=== PATIENT | female | born 1980 | race Caucasian/White ===

== ENCOUNTER → 2019-11-02 13:47 | Outpatient (CLI) | payer OTHER, SELFPAY ==
--- NOTE | 2019-11-02 14:06 | XR_ITS ---
PROCEDURE: XR CHEST 2V CLINICAL HISTORY: ACUTE BRONCHOPNEUMONIA Cough for 7 days COMPARISON: No exams were available for comparison FINDINGS: The cardiomediastinal silhouette and pulmonary vascularity are within normal limits. The lungs are clear without infiltrates, suspicious nodules, or pleural effusions. Calcified granulomas seen in the right mid lung field. No acute bony abnormalities. IMPRESSION: No acute findings. Dictated by: Kerwin Roland 11/02/2019 15:06 Electronically signed by Kerwin Roland in [place] 11/02/2019 15:06
== END ==
PROVIDERS: PCP Internal Medicine Adolescent Medicine; Visit Provider Internal Medicine Adolescent Medicine
DX: J18.0 Bronchopneumonia, unspecified organism (principal)
CPT/HCPCS: 71046

== ENCOUNTER → 2019-11-05 14:28 | Outpatient (CLI) | payer OTHER, SELFPAY ==
--- NOTE | 2019-11-05 14:44 | ECG_ITS ---
APPROVED REPORT Exam: Resting ECG HR:78 bpm ECG Measurements Heart Rate 78 AXES KS 130 P 83 QRSd 90 QRS 94 QT 386 T 50 QTc 440 <Conclusion> Normal sinus rhythm Rightward axis Borderline ECG Electronically signed by : Reg Richardson, 11/05/2019 17:01:35
[2019-11-05 15:02] LABS: Basophils # 0.1 K/mm3 (0-0.2); Basophils % 1.4 % (0.1-2.0); Eosinophils # 0.2 K/mm3 (0.0-0.4); Hematocrit 40.7 % (37.0-47.0); Hemoglobin 13.5 g/dL (12.2-16.2); Lymphocytes # 1.1 K/mm3 (0.7-4.5); Mean Corpuscular HGB Conc 33.1 g/dL (31.8-35.4); Mean Corpuscular Hemoglobin 30.3 pg (27.0-31.2); Mean Corpuscular Volume 91.8 fl (81-99); Mean Platelet Volume 7.9 fl (7.4-10.4); Monocytes # 0.2 K/mm3 (0.1-1.0); Monocytes % 5.1 % (1.7-9.3); Neutrophils # 3.1 K/mm3 (1.8-7.8); Neutrophils % 65.5 % (37.0-80.0); Platelet Count 141 K/mm3 (142-424); Red Blood Count 4.44 M/mm3 (4.20-5.40); Red Cell Distribution Width 12.6 % (11.5-17.5); White Blood Count 4.7 K/mm3 (4.8-10.8)
[2019-11-05 16:30] LABS: Chloride 105 mmol/L (98-107); Potassium 4.3 mmoL/L (3.5-5.1); Sodium 138 mmol/L (136-145)
[2019-11-05 16:32] LABS: Blood Urea Nitrogen 13 mg/dl (7-17); Estimated Glomerular Filt Rate 92 ml/min (>60); GFR (African American) 112 ML/MIN (>60)
[2019-11-05 16:33] LABS: Alanine Aminotransferase 35 U/L (12-78); Albumin Level 4.3 g/dl (3.5-5.0); Albumin/Globulin Ratio 1.8 (1.1-1.8); Alkaline Phosphatase 44 U/L (38-126); Anion Gap 5.3 mEq/L (5-15); Aspartate Amino Transferase 39 U/L (14-36); Bilirubin,Total 0.6 mg/dl (0.2-1.3); Calcium 9.5 mg/dl (8.4-10.2); Carbon Dioxide 32 mmol/L (22.0-30.0); Globulin 2.4 g/dL (1.3-3.2); Glucose 84 mg/dl (74-100); Total Protein,Serum 6.7 g/dl (6.3-8.2)
== END ==
PROVIDERS: Visit Provider Internal Medicine Adolescent Medicine
DX: R50.9 Fever, unspecified (principal); R05 Cough; Z79.899 Other long term (current) drug therapy
CPT/HCPCS: 36415; 80053; 85025; 93005

== ENCOUNTER → 2021-05-11 15:56 | Outpatient (CLI) | payer OTHER, SELFPAY ==
--- NOTE | 2021-05-11 15:59 | MM_ITS ---
PROCEDURE: MM DIG SCREENING MAMM BI W/CAD Digital Breast Tomosynthesis Included CLINICAL INDICATION: SCREENING COMPARISON: MG NB MAMM DIAG BILAT DIG PNL from 12/10/2014 MG BC-MAMM CLIP PLACEMENT OR VERIFI from 12/29/2014 MG BS-STEREO BX W/WO DEV 1ST from 12/29/2014 MG BS-STEREO SPECIMEN (RAD) EXAM from 12/29/2014 TECHNIQUE: Standard CC and MLO images and 3D Tomosynthesis was obtained. R2 CAD reviewed. FINDINGS: The breasts are heterogeneously dense which may obscure small masses. Right breast: Biopsy clip is present in the upper outer aspect of the right breast. No malignant appearing mass or malignant-appearing microcalcification. There is a 2 mm slightly lobulated nodule in the immediate retroareolar region only seen on the MLO view best seen on the tomosynthesis images. This may only be related to a small area of fibroglandular tissue. Spot compression views and ultrasound suggested for further evaluation. There are few benign appearing calcifications present. Left breast: There is a 2.6 x 2.2 by 2.7 cm well-circumscribed mass in the 9 o'clock region of the left breast central 1/3. There is a biopsy clip along the peripheral aspect of this mass. This does contain some calcifications most of which are coarse appearing. There is a least 1 area of linear calcification noted in the anterior aspect of this nodule and a few small punctate microcalcifications are also present.. This lesion has increased in size compared to the previous exam previously measuring 1.6 x 1.6 x 2.1 cm. IMPRESSION: Enlarging mass of the left breast. There is a surgical clip along the periphery of this lesion assuming that this has been previously biopsied. It may represent a fibroadenoma however, the pathology results are not available for review. Nonetheless this is increased in size and now contains some slightly suspicious calcifications. Therefore, suggest excisional biopsy for an enlarging assumed fibroadenoma. Please correlate with previous pathology. Small nodular opacity in the right retroareolar region for which spot compression view and ultrasound is suggested. BI-RAD Category: 4 Suspicious Abnormality-Biopsy Considered FOLLOW-UP: BIO Biopsy Recommended (A letter has been sent to the patient regarding results of the study.) Dictated by: Alex Metzger MD 05/17/2021 15:27 Alex Metzger MD in [place] 05/17/2021 15:27
== END ==
PROVIDERS: PCP Internal Medicine Adolescent Medicine; Visit Provider Internal Medicine Adolescent Medicine
DX: Z12.31 Encounter for screening mammogram for malignant neoplasm of breast (principal)
CPT/HCPCS: 77063; 77067

== ENCOUNTER → 2021-05-24 13:06 | Outpatient (CLI) | payer OTHER, SELFPAY ==
--- NOTE | 2021-05-24 13:06 | MM_ITS ---
PROCEDURE: MM DIG MAMM DX UNILAT RT CAD Digital Breast Tomosynthesis Included Right breast ultrasound complete Left breast ultrasound complete CLINICAL INDICATION: mass COMPARISON: US NU US BREAST UNILATERAL COMPLETE from 12/10/2014 MG NB MAMM DIAG BILAT DIG PNL from 12/10/2014 MG BS-STEREO BX W/WO DEV 1ST from 12/29/2014 MG BS-STEREO SPECIMEN (RAD) EXAM from 12/29/2014 MG MM DIG SCREENING MAMM BI W/CAD from 05/11/2021 US US BREAST LT COMPLETE from 05/24/2021 US US BREAST RT COMPLETE from 05/24/2021 TECHNIQUE: Problem solving views right breast and bilateral breast ultrasound FINDINGS: Right breast: The small nodular density in the retroareolar region is once again noted. This is well-circumscribed only well seen on the MLO view measuring approximately 2-3 mm. Probably benign. Right breast ultrasound: At 12 o'clock near the nipple there is a complicated cyst measuring 9 x 4 mm with multiple small septations. At 3 o'clock near the nipple there is a 4 x 5 mm cyst which may account for the mammographic abnormality. No suspicious lesions evident. Left breast ultrasound: At 2 o'clock near the nipple there is a complicated cyst measuring 6 mm. At 3 o'clock near the nipple there is a 2.4 x 1.6 x 2.6 cm hypoechoic nodule. There is posterior acoustical shadowing. The nodule is well-circumscribed. A clip is present along the posterior aspect of this nodule as seen on the recent mammogram. Previous ultrasound show the nodule to measure 2.3 by 2.3 x 1.5 cm. Mammographically, the nodule has enlarged now with some calcifications. Excisional suggested IMPRESSION: Probably benign findings right breast. Suggest 6 month follow-up. Left breast nodule at 3 o'clock has enlarged slightly compared to the previous exam. There are also some calcifications now present within the nodule. Excision of the nodule is suggested. BI-RAD Category: 4 Suspicious Abnormality-Biopsy Considered FOLLOW-UP: Six-month follow-up right breast. Recommend surgical excision of the left breast nodule. (A letter has been sent to the patient regarding results of the study.) Dictated by: Alex Metzger MD 05/31/2021 09:38 Alex Metzger MD in [place] 05/31/2021 09:38
== END ==
PROVIDERS: PCP Internal Medicine Adolescent Medicine; Visit Provider Surgery
DX: R92.8 Other abnormal and inconclusive findings on diagnostic imaging of breast (principal)
CPT/HCPCS: 76641; 77061; 77065; G0279

== ENCOUNTER → 2021-06-01 11:53 | Outpatient (CLI) | payer OTHER, SELFPAY ==
[2021-06-01 12:43] LABS: Basophils # 0.1 K/mm3 (0-0.2); Basophils % 1.5 % (0.1-2.0); Eosinophils # 0.1 K/mm3 (0.0-0.4); Eosinophils % 2.6 % (0.1-12.0); Hematocrit 43.3 % (37.0-47.0); Hemoglobin 14.2 g/dL (12.2-16.2); Lymphocytes % 27.4 % (10-50); Mean Corpuscular HGB Conc 32.9 g/dL (31.8-35.4); Mean Corpuscular Hemoglobin 30.6 pg (27.0-31.2); Mean Corpuscular Volume 93.2 fl (81-99); Mean Platelet Volume 7.3 fl (7.4-10.4); Monocytes # 0.2 K/mm3 (0.1-1.0); Monocytes % 5.8 % (1.7-9.3); Neutrophils # 2.3 K/mm3 (1.8-7.8); Neutrophils % 62.7 % (37.0-80.0); Platelet Count 173 K/mm3 (142-424); Red Blood Count 4.65 M/mm3 (4.20-5.40); Red Cell Distribution Width 12.5 % (11.5-17.5); White Blood Count 3.6 K/mm3 (4.8-10.8)
[2021-06-01 13:19] LABS: Chloride 104 mmol/L (98-107); Potassium 4.7 mmoL/L (3.5-5.1); Sodium 140 mmol/L (136-145)
[2021-06-01 13:21] LABS: Blood Urea Nitrogen 15 mg/dl (7-17); Estimated Glomerular Filt Rate 110 ml/min (>60); GFR (African American) 133 ML/MIN (>60)
[2021-06-01 13:22] LABS: Anion Gap 12.7 mEq/L (5-15); Calcium 8.9 mg/dl (8.4-10.2); Carbon Dioxide 28 mmol/L (22.0-30.0); Glucose 88 mg/dl (74-100)
== END ==
PROVIDERS: Visit Provider Surgery
DX: Z01.812 Encounter for preprocedural laboratory examination (principal); Z11.52 Encounter for screening for COVID-19; N63.20 Unspecified lump in the left breast, unspecified quadrant
CPT/HCPCS: 36415; 80048; 85025; C9803; U0003; U0005

== ENCOUNTER 2021-06-03 09:19 | Day surgery (SDC) | payer OTHER, SELFPAY ==
[2021-05-31 10:26] VITALS: BMI 22.8
[2021-06-03] VITALS (11 sets, daily range): BP systolic 102–128; BP diastolic 64–69; PULSE 56–72; RESP 12–18; TEMP 36.4–43; O2SAT 96–100
--- NOTE | 2021-06-03 | MM_ITS ---
PROCEDURE: MM DIG MAMM DX UNILAT LT CLINICAL INDICATION: COMPARISON: No exams were available for comparison TECHNIQUE: CC and mL views are obtained following ultrasound-guided acquire placement FINDINGS: The hookwire is along the mid to posterior aspect of the 3 o'clock nodule of the left breast centrally on the CC view in good position. IMPRESSION: Adequate hookwire localization of the left breast nodule Dictated by: Alex Metzger MD 06/09/2021 18:21 Alex Metzger MD in [place] 06/09/2021 18:21
[2021-06-03 06:47] LABS: HCG Qualitative, Serum Negative (Negative)
--- NOTE | 2021-06-03 10:01 | HMH.ANESCL ---
[facility] Anesthesia Checklist - Patient Identification Patient Identification: Arm Band - Structural Data Admitted From: Home Planned Operative Procedure/s: Needle loc breast biopsy Consent for Planned Operative Procedure(s) Verified: Yes - NPO Status Verified Time NPO: 00:00 - Additional verifications Anesthesia Reactions: Yes (nausea) Hx Blood Transfusions: No Blood Transfusion Reaction: No - Airway Assessment C-Spine Mobility Assessed: Yes TMJ Mobility Assessed: Yes Dentition: Good Dentition - Neurological Assessment Level of Consciousness: Awake Hx Seizures: No Numbness or tingling in extremities: No - Anesthesia Plan Anesthesia Risk discussed: Yes Anesthesia Plan: Verified ASA Class: I Anesthesia Type: General [facility] History I have reviewed the patient's past medical history: Yes Medical History: Denies:: Cancer, Diabetes Mellitus Type 1, Diabetes Mellitus Type 2, Internal Pacemaker, MRSA, Seizures *Have you ever received a pneumonia vaccine?: No *Have you received a flu vaccine this season?: Yes Other Medical History: Reports: Sinus Problems (Seasonal allergies). Denies: Blood Transfusion Reaction Anesthesia experience/problems:: PONV Other Surgeries: Yes: Other. 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
--- NOTE | 2021-06-03 10:12 | US_ITS ---
PROCEDURE: US BREAST NEEDLE LOC LT CLINICAL INDICATION: lump Left breast mass 3 o'clock COMPARISON: US US BREAST LT COMPLETE from 05/24/2021 FINDINGS: Following time-out procedure and obtaining informed consent under aseptic conditions and local anesthesia with 1 percent buffered lidocaine Kopan's needle was inserted into the center of the right breast nodule and hookwire was and employed. The patient tolerated the procedure well without evidence of immediate complication. IMPRESSION: Uneventful ultrasound-guided needle localization of the left breast Dictated by: Alex Metzger MD 06/09/2021 18:20 Alex Metzger MD in [place] 06/09/2021 18:20
--- NOTE | 2021-06-03 13:32 | MM_ITS ---
PROCEDURE: MM SURGICAL SPECIMEN CLINICAL INDICATION: SURGICAL SPECIMEN COMPARISON: No exams were available for comparison TECHNIQUE: Single image submitted of breast tissue specimen FINDINGS: Single image submitted in consent demonstrates the nodule of interest with a wire in place within the nodule. IMPRESSION: Tissue specimen shows the nodule of interest. Dictated by: Alex Metzger MD 06/09/2021 18:23 Alex Metzger MD in [place] 06/09/2021 18:23
--- NOTE | 2021-06-03 14:06 | P.PN_ITS ---
[facility] Anesthesia Record Part I Intake, IV Amount: 1,500 Estimated blood loss (mL): 25 Urine output (mL): 0 Blood Pressure: 102/65 SaO2: 96 Pulse Rate: 56 Respiratory Rate: 12 Temperature: 97.8 F Patient is:: Awake, Stable Stable to PACU at:: 14:00
--- NOTE | 2021-06-03 14:08 | P.OP_ITS ---
Date of procedure: 06/03/21 Pre-op Diagnosis:: Left breast mass Post-op Diagnosis:: Same Procedure performed:: Needle-localized excisional biopsy of left breast mass Surgeon:: José Miguel Guerrero MD Stone Setter Apprentice(s):: Tracy SUPERVISOR MET[employer]URNITURE FABRICATION:: Irvin Mead Anesthesia: LMA Estimated blood loss (mL): 15 Operative findings:: Excision confirmed radiographically Operative note:: After informed consent was obtained the patient was initially transferred to the radiology department for placement of her localization needle. Please see separate report for detail. She was then transferred to the operative suite and placed in the supine position. General anesthesia with laryngeal mask airway was achieved. Her left breast was prepped and draped in a sterile fashion. After infiltration with local anesthetic a curvilinear incision along the areolar margin was made adjacent to the needle exit site. The deep subcutaneous tissue was sharply dissected. The needle was brought into the incisional wound as the tissue was carefully elevated. A combination of electrocautery and dissection with curved Mcfarlane's was utilized to dissect the lesion free from surrounding tissue. The lesion was excised in toto and passed off for pathologic evaluation after being marked for margin with suture. Nondyed suture was utilized to vega the superior and lateral margins (short superior/long lateral). Dyed suture was then utilized to vega the superficial and deep margins (short superficial/long deep). The lesion was transferred to the radiology department where confirmation was made radiographically of appropriate excision. Electrocautery was utilized to achieve hemostasis. The wound margins were marked with metallic clips. Skin was then closed with a combination of 2-0 Vicryl and 4-0 Monocryl. Dressings were applied and the patient was transferred recovery in stable condition after removal of her laryngeal mask airway. Condition: stable Disposition: PACU Specimens:: Left breast mass Complications:: No immediate
--- NOTE | 2021-06-03 15:21 | P.PN_ITS ---
[facility] Anesthesia Record Part II Discharge Time: 14:30 Destination: Surgical Day Care (OP Surgery) PACU nurse assessment reviewed?: Yes Patient Condition:: Good Anesthesia Complications:: None Swallowing reflex intact?: Yes Cyanosis?: No Blood Pressure: 102/64 Pulse Rate: 60 Temperature: 97.5 F Mental Status: Alert & Oriented Pain level:: 0 Nausea and/or vomitting:: None Intake, IV Amount: 0
== END 2021-06-03 15:01 ==
PROVIDERS: PCP Internal Medicine Adolescent Medicine; Visit Provider Surgery
PROC: (CPT 19125; principal; 2021-06-03 11:45)
DX: N63.20 Unspecified lump in the left breast, unspecified quadrant (principal)
CPT/HCPCS: 19125; 19285; 76098; 77061; 77065; 84703; 96374; G0279; J2405

== ENCOUNTER → 2021-12-15 13:04 | Outpatient (CLI) | payer OTHER, SELFPAY ==
--- NOTE | 2021-12-15 13:04 | MM_ITS ---
PROCEDURE INFORMATION: Exam: US Left Breast, Complete US Right Breast, Complete MG Bilateral Diagnostic Breast Tomosynthesis Exam date and time: 12/15/2021 1:01 PM Age: 41 years old Clinical indication: Short-term radiographic followup; Bilateral breasts; Abnormal findings; Mass, lump, or swelling; Left; Prior surgery; Surgery date: 1-6 months; Surgery type: PT had fibroadenoma removed around 300 area; Patient HX: ; Fu; Additional info: 6 month fu TECHNIQUE: Imaging protocol: Complete ultrasound of all four quadrants of the Left breast and the retroareolar regions, including ultrasound of the axilla when performed. Complete ultrasound of all four quadrants of the Right breast and the retroareolar regions, including ultrasound of the axilla when performed. Bilateral Diagnostic tomosynthesis and 2D mammography including computer-aided detection (CAD) when performed. Unilateral or bilateral exam. COMPARISON: 1. MG MM DIG MAMM DX UNILAT LT CAD 06/03/2021 10:58 AM 2. MG MM DIG MAMM DX UNILAT RT CAD 05/24/2021 1:23 PM 3. MG MM DIG SCREENING MAMM BI W/CAD 05/11/2021 3:59 PM 4. SD US BREAST NEEDLE LOC LT 06/03/2021 10:20 AM FINDINGS: MAMMOGRAPHY: The breast is heterogeneously dense, which may obscure small masses. There are postoperative findings within the left breast. A previously present dominant retroareolar mass is no longer present, with postoperative distortion in this location No new mass, architectural distortion, or suspicious calcifications have developed to suggest malignancy. No axillary adenopathy. ULTRASOUND: Left breast: There is the expected distortion and small seroma along the 3 o'clock region of recently resected fibroadenoma. A couple of cysts measure approximately 3 mm. No suspicious solid or cystic mass is present. Right: Along the 12 o'clock periareolar breast 1 cm from the nipple, there is a hypoechoic septated complex near anechoic structure which measures 10 x 6 by 8 mm, previously 9 by 4 x 9 mm on 05/24/2021. This has features of a complicated cyst or a group of microcysts. Any difference in measurement is thought to reflect measuring technique There is a 6 mm simple cyst in the upper outer right breast 3 cm from the nipple No suspicious solid or cystic mass. No architectural distortion or shadowing is present. IMPRESSION: Six-month follow-up right breast targeted ultrasound is recommended to assess stability of a complex cystic structure in the right 12 o'clock periareolar breast. This appears to reflect a group of microcysts or possibly a septated cyst Routine annual screening mammography is recommended ASSESSMENT: BI-RADS category 3: Probably benign
== END ==
PROVIDERS: PCP Internal Medicine Adolescent Medicine; Visit Provider Surgery
DX: R92.8 Other abnormal and inconclusive findings on diagnostic imaging of breast (principal); D24.2 Benign neoplasm of left breast
CPT/HCPCS: 76641; 77062; 77066; G0279

== ENCOUNTER → 2022-06-08 12:57 | Outpatient (CLI) | payer OTHER, SELFPAY ==
--- NOTE | 2022-06-08 12:58 | US_ITS ---
PROCEDURE INFORMATION: Exam: US Right Breast, Complete Exam date and time: 06/08/2022 1:06 PM Age: 41 years old Clinical indication: Short-term radiographic follow-up for probable cystic change TECHNIQUE: Imaging protocol: Complete ultrasound of all four quadrants of the Right breast and the retroareolar regions, including ultrasound of the axilla when performed. COMPARISON: US BREAST RT COMPLETE 12/15/2021 1:43 PM FINDINGS: Breast: Sonographic images of the right breast including the retroareolar region, all 4 quadrants and the axilla do not demonstrate any solid masses. Minimal cystic change including a cluster of cysts in the 12 o'clock axis. No architectural distortion or acoustical shadowing. No skin thickening or axillary adenopathy. IMPRESSION: No sonographic evidence of malignancy. Benign cystic change in the right 12 o'clock axis. Annual mammographic screening is recommended unless otherwise clinically indicated. ASSESSMENT: BI-RADS Category 2: Benign
== END ==
PROVIDERS: PCP Internal Medicine Adolescent Medicine; Visit Provider Surgery
DX: N60.01 Solitary cyst of right breast (principal)
CPT/HCPCS: 76641

== ENCOUNTER → 2023-02-19 15:14 | Outpatient (CLI) | payer OTHER, SELFPAY ==
--- NOTE | 2023-02-19 15:32 | MM_ITS ---
PROCEDURE INFORMATION: Exam: US Right Breast, Complete US Left Breast, Complete MG Bilateral Screening 3D Mammography Exam date and time: 02/19/2023 3:40 PM Age: 42 years old Clinical indication: Screening. No family history of breast cancer. History of left excisional biopsy for fibroadenoma. TECHNIQUE: Imaging protocol: Complete ultrasound of all four quadrants of the right breast and the retroareolar regions, including ultrasound of the axilla when performed. Complete ultrasound of all four quadrants of the left breast and the retroareolar regions, including ultrasound of the axilla when performed. Bilateral Screening tomosynthesis and 2D mammography including computer-aided detection (CAD) when performed. COMPARISON: MG MM DIG MAMM BI DX W/CAD 12/15/2021 1:01 PM US BREAST LT COMPLETE 12/15/2021 2:00 PM US BREAST RT COMPLETE 12/15/2021 1:43 PM US BREAST RT COMPLETE 06/08/2022 1:06 PM US BREAST RT COMPLETE 05/24/2021 1:13 PM FINDINGS: MAMMOGRAPHY: Breast composition: The breasts are heterogeneously dense, which may obscure small masses. Mass: None. Architectural distortion: Stable postoperative architectural distortion and surgical clips in the left breast. Calcifications: No suspicious calcifications. Asymmetric density: None. Skin thickening: None. Axillary adenopathy: None. Other: Right biopsy clip. ULTRASOUND: Bilateral sonography, all 4 quadrants, retroareolar and axilla. On the right, at 12 o'clock 2 cm from the nipple, complicated cluster of cysts with avascular thin septations measuring 0.9 x 0.6 by 0.8 cm which measured 1.0 x 0.6 x 0.8 cm on 12/15/2021 and 0.9 x 0.4 x 0.9 cm on 05/24/2021. Retroareolar, probable complicated cluster of cysts with avascular thin septations measuring 0.6 x 0.5 by 0.7 cm, new or newly documented. At 3 o'clock 1 cm from the nipple, probable cyst with minimal avascular debris - which may correspond to the cyst annotated in the upper inner quadrant 3 cm from the nipple which measured 0.5 x 0.2 by 0.6 cm on 12/15/2021. Sonographically unremarkable axillary lymph node. On the left, at 2 o'clock 2 cm from the nipple, simple cyst measuring 0.5 x 0.3 x 0 3 cm which measured 0.3 x 0.3 x 0.2 cm on 12/15/2021. At 3 o'clock 3 cm from the nipple, at the postsurgical scar, resolved seroma with minimal scarring. No other sonographic findings demonstrated. Sonographically unremarkable axillary lymph node. IMPRESSION: Probably benign cystic changes on the right retroareolar and at 3 o'clock, suggest six-month follow-up right sonography unless otherwise clinically indicated. No mammographic evidence of malignancy with annual screening mammogram recommended. ASSESSMENT: Screening mammogram BIRADS: BI-RADS Category 2: Benign Overall BIRADS: BI-RADS Category 3: Probably benign
== END ==
PROVIDERS: PCP Emergency Medicine; Visit Provider Surgery
DX: Z12.31 Encounter for screening mammogram for malignant neoplasm of breast (principal); N60.09 Solitary cyst of unspecified breast; N63.10 Unspecified lump in the right breast, unspecified quadrant; N63.20 Unspecified lump in the left breast, unspecified quadrant
CPT/HCPCS: 76641; 77063; 77067

== ENCOUNTER 2023-09-24 13:02 | Outpatient (CLI) | payer OTHER, SELFPAY ==
--- NOTE | 2023-09-24 13:02 | US_ITS ---
PROCEDURE INFORMATION: Exam: US Right Breast, Complete Exam date and time: 09/24/2023 1:22 PM Age: 42 years old Clinical indication: Six-month follow-up for probably benign cystic change right retroareolar and right at 3 o'clock initiated 02/19/2023. TECHNIQUE: Imaging protocol: Complete ultrasound of all four quadrants of the right breast a retroareolar regions, including ultrasound of the axilla when performed. COMPARISON: US BREAST RT COMPLETE 02/19/2023 3:40 PM FINDINGS: Breast: Targeted sonography on the right at 12 o'clock 2 cm from the nipple, complicated cluster of cysts with thin avascular septations measuring 0.7 x 0.5 x 0.4 cm which measured 0.9 x 0.6 x 0.8 cm, stable since 05/24/2021, as reported on sonography 02/19/2023. At 1 o'clock 3 cm from the nipple, oval hypoechoic avascular mass, probably complicated cysts, new or newly demonstrated. At 3 o'clock, no sonographic findings demonstrated. At 5 o'clock 1 cm from the nipple, probable complicated cluster of cysts with thin avascular septation measuring 0.5 x 0.4 x 0.3 cm. Retroareolar, probable complicated cluster of cysts with avascular thin septation measuring 0.7 x 0.6 x 0.5 cm which measured 0.7 x 0.6 x 0.5 cm on 02/19/2023. Sonographically unremarkable axillary lymph node. IMPRESSION: Probably benign cystic changes retroareolar, stable since initiated follow-up 05/22/2023. Probably benign cystic changes at 1 o'clock, new or newly demonstrated. No persistent cystic findings at 3 o'clock. Benign-appearing cystic changes at 12 o'clock, stable for over 2 years. Suggest continued six-month follow-up right sonography when the patient returns for her bilateral mammogram January 2024, unless otherwise clinically indicated. ASSESSMENT: BI-RADS Category 3: Probably benign
== END 2023-09-24 23:59 ==
LOC: RAD 13:02
PROVIDERS: PCP Nurse Practitioner Family; Visit Provider Surgery
DX: N60.11 Diffuse cystic mastopathy of right breast (principal)
CPT/HCPCS: 76641

== ENCOUNTER 2024-01-10 08:04 | Outpatient (CLI) | payer OTHER, SELFPAY ==
[2024-01-10 08:39] LABS: Basophils # 0.1 K/mm3 (0-0.2); Basophils % 2.2 % (0.1-2.0); Eosinophils # 0.1 K/mm3 (0.0-0.4); Eosinophils % 3.2 % (0.1-12.0); Hematocrit 41.6 % (37.0-47.0); Lymphocytes # 1.1 K/mm3 (0.7-4.5); Lymphocytes % 33.5 % (10-50); Mean Corpuscular HGB Conc 33.7 g/dL (31.8-35.4); Mean Corpuscular Volume 92.1 fl (81-99); Monocytes # 0.3 K/mm3 (0.1-1.0); Monocytes % 7.4 % (1.7-9.3); Neutrophils # 1.8 K/mm3 (1.8-7.8); Neutrophils % 53.7 % (37.0-80.0); Platelet Count 156 K/mm3 (142-424); Red Blood Count 4.51 M/mm3 (4.20-5.40); Red Cell Distribution Width 13.6 % (11.5-17.5); White Blood Count 3.3 K/mm3 (4.8-10.8)
[2024-01-10 09:36] LABS: Alanine Aminotransferase 9 U/L (12-78); Albumin Level 4.3 g/dl (3.5-5.0); Albumin/Globulin Ratio 1.9 (1.1-1.8); Alkaline Phosphatase 39 U/L (38-126); Aspartate Amino Transferase 20 U/L (14-36); Bilirubin,Total 1.9 mg/dl (0.2-1.3); Blood Urea Nitrogen 19 mg/dl (7-17); Carbon Dioxide 27 mmol/L (22.0-30.0); Chloride 104 mmol/L (98-107); Chol/HDL Ratio 3.5 (1-3.5); Cholesterol 188 mg/dl (140-200); Estimated Glomerular Filt Rate 78 ml/min (>60); GFR (African American) 94 ML/MIN (>60); Globulin 2.3 g/dL (1.3-3.2); Glucose 93 mg/dl (74-100); HDL Cholesterol 53 mg/dl (40-60); Sodium 140 mmol/L (136-145); Total Protein,Serum 6.6 g/dl (6.3-8.2); Triglycerides 79 mg/dl (30-150); VLDL Cholesterol 16 mg/dL (0-40)
[2024-01-10 09:47] LABS: Direct LDL Cholesterol 100.23 mg/dL (100-129)
== END 2024-01-10 23:59 | disposition home or self-care (01) ==
LOC: LAB 08:04
PROVIDERS: PCP Nurse Practitioner Family; Visit Provider Nurse Practitioner Obstetrics & Gynecology
DX: Z01.419 Encounter for gynecological examination (general) (routine) without abnormal findings (principal)
CPT/HCPCS: 36415; 80053; 80061; 85025

== ENCOUNTER 2024-02-22 13:05 | Outpatient (CLI) | payer OTHER, SELFPAY ==
--- NOTE | 2024-02-22 13:06 | US_ITS ---
PROCEDURE INFORMATION: Exam: US Left Breast, Complete US Right Breast, Complete MG Bilateral Screening 3D Mammography Exam date and time: 02/22/2024 1:16 PM Age: 43 years old Clinical indication: Screening examination TECHNIQUE: Imaging protocol: Complete ultrasound of all four quadrants of the left breast and the retroareolar regions, including ultrasound of the axilla when performed. Complete ultrasound of all four quadrants of the right breast and the retroareolar regions, including ultrasound of the axilla when performed. Bilateral Screening tomosynthesis and 2D mammography including computer-aided detection (CAD) when performed. COMPARISON: US BREAST LT COMPLETE 02/22/2024 1:16 PM FINDINGS: MAMMOGRAPHY: Breast composition: The breasts are heterogeneously dense, which may obscure small masses. Mass: None. Architectural distortion: None. Calcifications: None. Asymmetric density: None. Skin thickening: None. Axillary adenopathy: None. ULTRASOUND: Right solid masses: None. Right cystic masses: Minimal subcentimeter cystic change is present in the right breast. Right architectural distortion: None. Right acoustical shadowing: None. Right skin thickening: None. Right axillary adenopathy: None. Left solid masses: None. Left cystic masses: Minimal subcentimeter cystic change is present in the left breast. Left architectural distortion: None. Left acoustical shadowing: None. Left skin thickening: None. Left axillary adenopathy: None. IMPRESSION: No mammographic or sonographic evidence of malignancy. Annual screening is recommended unless otherwise clinically indicated. ASSESSMENT: BI-RADS Category 2: Benign.
== END 2024-02-22 23:59 | disposition home or self-care (01) ==
LOC: RAD 13:06
PROVIDERS: PCP Nurse Practitioner Obstetrics & Gynecology; Visit Provider Surgery
DX: Z12.31 Encounter for screening mammogram for malignant neoplasm of breast (principal); N60.01 Solitary cyst of right breast
CPT/HCPCS: 76641; 77063; 77067

== ENCOUNTER 2025-02-23 12:45 | Outpatient (CLI) | payer OTHER, SELFPAY ==
--- NOTE | 2025-02-23 12:49 | US_ITS ---
PROCEDURE INFORMATION: Exam: US Left Breast, Complete US Right Breast, Complete MG Bilateral Screening 3D Mammography Exam date and time: 02/23/2025 1:48 PM Age: 44 years old Clinical indication: History of left breast surgery. History of benign right biopsy. TECHNIQUE: Imaging protocol: Complete ultrasound of all four quadrants of the left breast and the retroareolar regions, including ultrasound of the axilla when performed. Complete ultrasound of all four quadrants of the right breast and the retroareolar regions, including ultrasound of the axilla when performed. Bilateral Screening tomosynthesis and 2D mammography including computer-aided detection (CAD) when performed. COMPARISON: US BREAST LT COMPLETE 02/22/2024 1:16 PM FINDINGS: MAMMOGRAPHY: Breast composition: There are scattered areas of fibroglandular density. Mass: None. Architectural distortion: Surgical clips in the left breast central to lateral aspect, anterior depth as well as a biopsy tissue marker in the right breast. Calcifications: None. Asymmetric density: None. Skin thickening: None. Axillary adenopathy: None. ULTRASOUND: Right solid masses: None. Right cystic masses: Bilateral similar subcentimeter cysts Right architectural distortion: None. Right acoustical shadowing: None. Right skin thickening: None. Right axillary adenopathy: None. Left solid masses: None. Left cystic masses: Bilateral similar subcentimeter cysts Left architectural distortion: None. Left acoustical shadowing: None. Left skin thickening: None. Left axillary adenopathy: None. IMPRESSION: No mammographic or sonographic evidence of malignancy. Annual screening is recommended unless otherwise clinically indicated. ASSESSMENT: BI-RADS Category 2: Benign.
--- OUTSIDE RECORDS SUMMARY | 2025-02-23 12:50 | XMS_ITS | Clinical Summary ---
Author Organization Healthcare Address 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 Name Role Phone Unavailable Primary Care Provider Unavailabl e Immunizations Immunization Administration Dates Next Due Influenza, Unspecified 05/18/2011,05/18/2010 Influenza, injectable, quadrivalent, preservativ e free 05/09/2017 Influenza, seasonal, injectable 06/04/2015 Influenza, seasonal, injectable, preservative fr ee 06/16/2016 Tdap 07/30/2012 Social History Tobacco Use Types Packs/Day Years Used Date Smoking Tobacco: Never Alcohol Use Standard Drinks/Week Comments Yes 0 (1 standard drink = 0.6 oz pure alcohol) Alcoholic Drinks/day: Minimum alcohol consumption Comments Unknown Sex and Gender Information Value Date Recorded Sex Assigned at Not on file Legal Sex Female 8:58 PM EDT Gender Identity Not on file Sexual Orientation Not on file Last Filed Vital Signs Vital Sign Reading Time Taken Comments Blood Pressure 94/69 10/12/2017 9:59 AM EDT Pulse 76 10/12/2017 9:59 AM EDT Temperature 36.7 C (98 F) 09/28/2017 11:28 AM EST Respiratory Rate - - Oxygen Saturation - - Inhaled Oxygen Concentration - - Weight 71.3 kg (157 lb 1.6 oz) 10/12/2017 9:59 A M EDT Height 170.2 cm (5' 7 ) 10/12/2017 9:59 AM EDT Body Mass Index 24.61 10/12/2017 9:59 AM EDT Plan of Treatment Health Maintenance Due Date Last Done Comments [facility]-Depression Screening 1980 [facility]-/Child/Adol SDOH Screenings 1980 [facility]- SDOH Screenings 1996 [facility]-Adult SDOH Screenings 1996 [facility]-Hepatitis B Vaccines (1 of 3 - 19+ 3-dose series) 1997 [facility]-Pap Smear 06/04/2018 06/04/2015, 05/18/2010 [facility]-Cervical Cancer Screening 06/04/2020 [facility]-HPV/Cotest 06/04/2020 06/04/2015, 05/18/2010 [facility]-DTaP,Tdap,and Td Vaccines (2 - Td or Tdap) 07/30/2022 07/30/2012 CT Colonography 10/04/2023 Colonoscopy 10/04/2023 FIT-DNA 10/04/2023 FIT 10/04/2023 FOBT 10/04/2023 Sigmoidoscopy 10/04/2023 [facility]-Colorectal Cancer Screening 10/04/2023 CBY-USGON-10 Vaccine ( season) 2024 [facility]-Influenza Vaccine (#1) 03/30/202505/09, 06/16/2016, 06/04/2015, Additional history exists [facility]-Zoster Vaccines (1 of 2) 2028 HPV Vaccines Aged Out No longer eligi ble based on patient's age to complete this topic [facility]-HIB Vaccines Aged Out No longer e ligible based on patient's age to complete this topic [facility]-Hepatitis A Vaccines Aged Out No longer eligible based on patient's age to complete this topic [facility]-IPV Vaccines Aged Out No longer e ligible based on patient's age to complete this topic [facility]-Pneumococcal Vaccine: Pediatrics (0 to 5 Years) and At-Risk Patients (6 to 49 Years) Aged Out No longer eligible based on patient's age to complete this topic [facility]-Rotavirus Vaccines Aged Out No lo nger eligible based on patient's age to complete this topic Procedures Procedure Name Priority Date/Time Associated Diagnosis Comments CYTO DATA CONVERSION Routine 06/04/2015 12:00 AM EST from Last 3 Months or Most Recently Relevant to Health Maintenance Results * (ABNORMAL) Cytology (06/04/2015 12:00 AM EST) 06/04/2015 06/07/2015 9:1 4 AM EST Narrative SUNQUEST - 06/14/2015 11:40 AM EST [facility] MR #: [id number] [facility] [place] [address] 1980 (Age: 34) FW Collect Date: 06/04/2015 00:00 Receipt Date: 06/07/2015 09:14 Page 1 DEPARTMENT OF PATHOLOGY AND LABORATORY MEDICINE CYTOPATHOLOGY REPORT Email: [email or web address] [email or web address] ATTENDING MD/Practitioner: Brenda Webster MD Service: [facility] Location: [facility] Reported: 06/14/2015 11:40 Collected: 06/04/2015 00:00 INTERPRETATION A. THIN PREP (CERVICAL/VAGINAL): ATYPICAL SQUAMOUS CELLS - UNDETERMINED SIGNIFICANCE. SATISFACTORY FOR EVALUATION; ENDOCERVICAL/ TRANSFORMATION ZONE COMPONENT PRESENT. Slide scanned and imaged by [employer] ThinPrep Imaging System with manual review of all selected stanton. Please correlate with HPV results (see microbiology report, or call [phone]). If HPV positive, colposcopy is recommended. If HPV (-), repeat cotesting (Pap test + HPV test) in three years is recommended. The management options may differ if the patient is or ages 21-24. Please refer to www.asccp.org for more information. Electronically Signed Out ELICIA Arellano (ASC) Court Addison MD Cervical cytology is a screening test primarily for squamous cancers and precursors and has associated false negative and positive results. New technologies such as liquid based sampling may decrease but will not eliminate all false negative results. Regular screening and follow-up of unexplained clinical signs and symptoms are recommended to minimize false negative results. Please see the ASCCP website (www.asccp.org) for followup recommendations. If HPV testing was requested, correlation with the results is suggested (please call Microbiology at [phone] for results). CLINICAL INFORMATION: Menstrual History: Irregular cycle Date of Last Menstrual Period: Unknown Contraceptive History: Intrauterine device Other Clinical Conditions: HPV testing requested. SPECIMEN DESCRIPTION: A: THIN PREP (CERVICAL/VAGINAL) THIN PREP PROCESS CELLULAR ENHANCEMENT ICD: Z12.4 Encounter for screening for malignant neoplasm of cervix R87.610 Atyp squam cell of undet signfc cyto smr crvx (ASC-US) F: A; RT IMAGE 45580, 42755 C\V (PO) SNOMED CODES: A; [id number] [id number] [id number] In cases where a pathologist has signed out the report, the service has been rendered in part by a resident. The signing pathologist has performed and is responsible for the reported pathologic evaluation. us Heidy Webster MD LAB PATHOLOGY ORDERABLES Fi nal Result SUNQUEST from Last 3 Months or Most Recently Relevant to Health Maintenance
== END 2025-02-23 23:59 | disposition home or self-care (01) ==
LOC: RAD 12:47
PROVIDERS: PCP Nurse Practitioner Family; Referring Provider Nurse Practitioner Obstetrics & Gynecology; Visit Provider Surgery
DX: N60.12 Diffuse cystic mastopathy of left breast (principal); N60.11 Diffuse cystic mastopathy of right breast; R92.323 Mammographic fibroglandular density, bilateral breasts
CPT/HCPCS: 76641; 77063; 77067

== ENCOUNTER 2025-03-23 08:25 | Outpatient (CLI) | payer OTHER, SELFPAY ==
--- OUTSIDE RECORDS SUMMARY | 2025-03-23 08:30 | XMS_ITS | Clinical Summary ---
Author Organization Healthcare Address [address] [place] [address] Care Team Providers Care Lay Out Maker Name Role Phone Unavailable Primary Care Provider [...] [facility]-Cervical Cancer Screening 06/04/2020 [facility]-HPV/Cotest 06/04/2020 06/04/2015, 11/0 12/2014, 05/18/2010 [facility]-DTaP,Tdap,and Td Vaccines (2 - Td or Tdap) 07/30/2022 07/30/2012 CT Colonography 10/04/2023 Colonoscopy 10/04/2023 FIT-DNA 10/04/2023 FIT 10/04/2023 FOBT 10/04/2023 Sigmoidoscopy 10/04/2023 [facility]-Colorectal Cancer Screening 10/04/2023 [id number] Vaccine ( - season) 2024 [facility]-Influenza Vaccine (#1) 03/30/202505/09, 06/16/2016, [...] Cytology (06/04/2015 12:00 AM EST) 06/04/2015 06/07/2015 9: 14 AM EST Narrative SUNQUEST - 06/14/2015 11:40 AM EST [facility] MR #: [id number] [facility] [address] [place], [place] [address] 1980 (Age: 34) FW Collect Date: 06/04/2015 00:00 Receipt Date: 06/07/2015 09:14 Page 1 DEPARTMENT OF PATHOLOGY AND LABORATORY MEDICINE CYTOPATHOLOGY REPORT Email: [email or web address] [phone] ATTENDING MD/Practitioner: Brenda Webster MD Service: [facility] Location: [facility] Reported: 06/14/2015 11:40 Collected: 06/04/2015 00:00 INTERPRETATION A. THIN PREP (CERVICAL/VAGINAL): ATYPICAL SQUAMOUS CELLS - UNDETERMINED SIGNIFICANCE. SATISFACTORY FOR EVALUATION; ENDOCERVICAL/ TRANSFORMATION ZONE COMPONENT PRESENT. Slide scanned and imaged by [employer] ThinPrep Imaging System with manual review of all selected stanton. Please correlate with HPV results (see microbiology report, or call [phone]). If HPV positive, colposcopy is recommended. If [...] results is suggested (please call Microbiology at [phone] for results). CLINICAL INFORMATION: Menstrual History: Irregular cycle Date of Last Menstrual Period: Unknown Contraceptive History: Intrauterine device Other Clinical Conditions: HPV testing requested. SPECIMEN DESCRIPTION: A: THIN PREP (CERVICAL/VAGINAL) THIN PREP PROCESS CELLULAR ENHANCEMENT ICD: Z12.4 Encounter for screening for malignant neoplasm of cervix R87.610 Atyp squam cell of undet signfc cyto smr crvx (ASC-US) F: A; RT IMAGE 65023, 95064 C\V (PO) SNOMED CODES: A; [id number] [id number] M-26061 In cases where a pathologist has signed out the report, the service has been rendered in part by a resident. The signing pathologist has performed and is responsible for the reported pathologic evaluation. us Heidy Webster MD LAB PATHOLOGY ORDERABLES Fi nal Result SUNQUEST from Last 3 Months or Most Recently Relevant to Health Maintenance
--- NOTE | 2025-03-23 08:46 | XR_ITS ---
FINAL REPORT TECHNIQUE: A topogram of the lower extremities was obtained. CLINICAL HISTORY: leg discrepancy, chronic right hip pain FINDINGS: The length of the right lower extremity from the top of the femoral head to the articular surface of the distal tibia is 78.1 cm. The length of the left lower extremity from the top of the femoral head to the articular surface of the distal tibia is 79.7 cm. IMPRESSION: Right lower extremity: 78.1 cm. Left lower extremity: 79.7 cm. Reviewed, Interpreted and Dictated by Kim Álvarez MD Transcribed by Sophie Santana Authenticated and [facility]
--- NOTE | 2025-03-23 08:46 | XR_ITS ---
FINAL REPORT CLINICAL HISTORY: chronic right hip pain FINDINGS: AP and frog leg views of the right hip were obtained. There is no acute fracture or dislocation. There is degenerative joint disease of the right hip, asymmetric from the left hip with medial joint space narrowing. An IUD is noted in the pelvis. Soft tissues are unremarkable. IMPRESSION: No acute osseous abnormality of the right hip. Degenerative joint disease of the right hip, asymmetric from the left hip. Reviewed, Interpreted and Dictated by Kim Álvarez MD Transcribed by Sophie Santana Authenticated and [facility]
[2025-03-23 09:12] LABS: Hematocrit 42.6 % (37.0-47.0); Hemoglobin 14.1 g/dL (12.2-16.2); Immature Granulocytes % 0 %; Mean Corpuscular HGB Conc 33.1 g/dL (31.8-35.4); Mean Corpuscular Hemoglobin 29.9 pg (27.0-31.2); Mean Corpuscular Volume 90.3 fl (81-99); Nucleated Red Blood Cells % 0 %; Platelet Count 143 K/mm3 (142-424); Red Blood Count 4.72 M/mm3 (4.20-5.40); Red Cell Distribution Width-SD 40.8 fL; White Blood Count 3.5 K/mm3 (4.8-10.8)
[2025-03-23 09:33] LABS: Microscopic, Urine URINE MICROSCOPIC (MICROSCOPIC)
[2025-03-23 09:40] LABS: Albumin Level 4.3 g/dl (3.5-5.0); Chloride 107 mmol/L (98-107)
[2025-03-23 09:41] LABS: Potassium 4.5 mmoL/L (3.5-5.1); Sodium 141 mmol/L (136-145)
[2025-03-23 09:43] LABS: Alanine Aminotransferase 7 U/L (12-78); Albumin/Globulin Ratio 2.0 (1.1-1.8); Alkaline Phosphatase 50 U/L (38-126); Anion Gap 11.5 mEq/L (5-15); Aspartate Amino Transferase 20 U/L (14-36); Bilirubin,Total 1.2 mg/dl (0.2-1.3); Blood Urea Nitrogen 19 mg/dl (7-17); Carbon Dioxide 27 mmol/L (22.0-30.0); Creatinine,Serum 0.80 mg/dl (0.52-1.04); Estimated Glomerular Filt Rate 77 ml/min (>60); GFR (African American) 93 ML/MIN (>60); Globulin 2.2 g/dL (1.3-3.2); Iron 70 ug/dL (37-170); Total Protein,Serum 6.5 g/dl (6.3-8.2)
[2025-03-23 09:44] LABS: Calcium 9.1 mg/dl (8.4-10.2); Cholesterol 160 mg/dl (140-200); Glucose 91 mg/dl (74-100); HDL Cholesterol 52 mg/dl (40-60); Triglycerides 57 mg/dl (30-150)
[2025-03-23 09:53] LABS: Total Iron Binding Capacity 297 ug/dL (265-497)
[2025-03-23 10:00] LABS: Bilirubin,Urine Negative (Negative); Color,Urine YELLOW (Yellow); Glucose,Urine (UA) Negative (Negative); Ketones,Urine Negative (Negative); Leukocyte Esterase,Urine Negative (Negative); PH,Urine 6.0 (5.0-8.5); Protein,Urine Negative (Negative); Specific Gravity, Urine 1.010 (1.005-1.030); Urobilinogen,Urine 0.2 EU/dl (0.2)
[2025-03-23 10:13] LABS: Bacteria,Urine Trace /lpf; Squamous Epithelial Cell,Urine Occasional #/hpf (0-5)
[2025-03-23 10:17] LABS: Thyroid Stimulating Hormone 2.83 uIU/mL (0.465-4.68)
[2025-03-23 10:19] LABS: Free T4 (Free Thyroxine) 0.99 ng/dl (0.78-2.19)
[2025-03-23 10:21] LABS: Ferritin 17.9 ng/ml (6.24-137)
[2025-03-23 10:33] LABS: Hepatitis C Ab Qual. W/ RFX NEGATIVE (Negative)
[2025-03-23 11:38] LABS: Hemoglobin A1C 5.0 % (4.0-6.0)
[2025-03-23 13:20] LABS: 25-OH Vitamin D, Total 44.6 ng/mL (30-100)
[2025-03-23 17:43] LABS: Vitamin B12 327 pg/mL (239-931)
== END 2025-03-23 23:59 | disposition home or self-care (01) ==
LOC: LAB 08:26
PROVIDERS: PCP Nurse Practitioner Family; Visit Provider Nurse Practitioner Family
DX: M25.551 Pain in right hip (principal); M21.70 Unequal limb length (acquired), unspecified site; E11.9 Type 2 diabetes mellitus without complications; Z11.59 Encounter for screening for other viral diseases; Z11.4 Encounter for screening for human immunodeficiency virus [HIV]; Z13.220 Encounter for screening for lipoid disorders; Z13.29 Encounter for screening for other suspected endocrine disorder; Z76.89 Persons encountering health services in other specified circumstances; R53.83 Other fatigue; R41.3 Other amnesia; G47.33 Obstructive sleep apnea (adult) (pediatric); I10 Essential (primary) hypertension
CPT/HCPCS: 36415; 73502; 77073; 80053; 80061; 81001; 82306; 82607; 82728; 83036; 83540; 83550; 84439; 84443; 85025; 86803; 87086; 87389